=== PATIENT | male | born 1950 | race Caucasian/White ===

== ENCOUNTER 2023-01-14 16:51 | Emergency (ER) | payer OTHER ==
[~2023-01-14] VITALS: Ht 193 cm; Wt 100.0 kg
[2023-01-14 17:01] VITALS: BP 122/96
== END 2023-01-14 17:56 | disposition home or self-care (01) ==
LOC: ER 16:55
DX: Z93.3 Colostomy status (principal); Z88.8 Allergy status to other drugs, medicaments and biological substances
CPT/HCPCS: 99281